=== PATIENT | male | born 1935 | race Caucasian/White ===

== ENCOUNTER 2017-04-23 08:27 | Observation (INO) | payer OTHER ==
[~2017-04-23] VITALS: Ht 182.9 cm; Wt 101.6 kg
[~2017-04-23 08:27] MED LIST: ACET-2247 PO; ALBU8.5H8 IH; ASPI-1197 PO; DOCU100C33 PO; LOSA25TA21 PO; MULT-1258 PO; OMEP40CA37 PO; PRAV20TA4 PO; SOLI10TA PO; SPIR50TA PO; TAMS0.4C32 PO; URIN1STR90 MC
[2017-04-23 08:45] LABS: BASOPHILS % (AUTO) 0.7 % (0.0-5.0); EOSINOPHILS % (AUTO) 1.8 % (0.0-8.0); HEMATOCRIT 36.9 % (42-54); LYMPHOCYTES % (AUTO) 22.7 % (21.0-51.0); MEAN CORPUSCULAR HEMOGLOBIN 29.8 pg (27.0-33.0); MEAN CORPUSCULAR HGB CONC 34.3 g/dL (32.0-36.0); MEAN CORPUSCULAR VOLUME 86.9 fL (79-99); MONOCYTES % (AUTO) 10.2 % (3.0-13.0); NEUTROPHILS % (AUTO) 64.6 % (40.0-77.0); PLATELET COUNT (AUTO) 135 K/uL (130-400); RED BLOOD CELL COUNT(AUTO) 4.25 MIL/uL (4.50-6.20); RED CELL DISTRIBUTION WIDTH 14.6 % (11.0-15.5); WHITE BLOOD COUNT (AUTO) 7.2 K/uL (4.8-10.8)
[2017-04-23 08:55] LABS: POTASSIUM 5.3 mmol/L (3.5-5.1)
[2017-04-23 08:56] LABS: INR 0.99 (0.85-1.15); PARTIAL THROMBOPLASTIN TIME 25.6 SEC (26.3-35.5); PROTHROMBIN TIME 10.4 SEC (9.6-11.6)
[2017-04-23 08:59] LABS: ALBUMIN 3.7 g/dL (3.5-5.0); BILIRUBIN,TOTAL 0.7 mg/dL (0.2-1.0); TOTAL PROTEIN, SERUM 7.3 g/dL (6.0-8.3)
[2017-04-23 09:55] LABS: APPEARANCE,URINE Clear (CLEAR); BILIRUBIN,URINE Negative (NEGATIVE); COLOR,URINE Dark Yellow (YELLOW); GLUCOSE, URINE (UA) Negative (NEGATIVE); KETONES,URINE Negative (NEGATIVE); LEUKOCYTE ESTERASE ,URINE Small (NEGATIVE); NITRATE,URINE Positive (NEGATIVE); OCCULT BLOOD,URINE Negative (NEGATIVE); PH,URINE 8.5 (5.0-8.0); PROTEIN,URINE Negative (NEGATIVE)
[2017-04-23 10:48] LABS: BACTERIA,URINE Rare /HPF (None Seen); RBC,URINE 0-1 /HPF (0-1); SQUAMOUS EPITHELIAL CELL,UR None Seen /LPF (0-2); WBC,URINE 0-1 /HPF (0-1)
[2017-04-23] MEDS ORDERED: GUAIFENESIN-DM 200/20 MG 10 ML PO PRN (15:00)
[2017-04-23] MEDS ORDERED: MAG HYDROX/AL HYDROX/SIMETH ES 30 ML SUSP UDCUP PO PRN (15:00)
[2017-04-23] MEDS ORDERED: ACETAMINOPHEN 325 MG TAB PO PRN ×2 (15:00)
[2017-04-23] MEDS ORDERED: ONDANSETRON HCL 4 MG/2 ML VIAL IV PRN (15:00)
[2017-04-23] MEDS ORDERED: LACTULOSE 20 GM/30 ML UDCUP PO PRN (15:00)
[2017-04-23 16:16] VITALS: BP 127/57
[2017-04-23] MEDS ORDERED: CLOP75TA32 PO (17:23)
[2017-04-23 19:04] VITALS: BP 112/58
[2017-04-23] MEDS ORDERED: FAMOTIDINE/PF 20 MG/2 ML VIAL IV SCH (21:00)
[2017-04-23 23:09] VITALS: BP 114/49
[2017-04-24] VITALS (7 sets, daily range): BP systolic 122–144; BP diastolic 60–70
[2017-04-24] MEDS ORDERED: SODIUM CHLORIDE 0.9% 1000ML 1,000 ML IV ONE (03:35)
[2017-04-24 03:42] LABS: HEMATOCRIT 35.1 % (42-54); MEAN CORPUSCULAR HEMOGLOBIN 29.6 pg (27.0-33.0); MEAN CORPUSCULAR VOLUME 87.1 fL (79-99); PLATELET COUNT (AUTO) 119 K/uL (130-400); RED BLOOD CELL COUNT(AUTO) 4.03 MIL/uL (4.50-6.20); RED CELL DISTRIBUTION WIDTH 14.1 % (11.0-15.5); WHITE BLOOD COUNT (AUTO) 6.7 K/uL (4.8-10.8)
[2017-04-24] MEDS ORDERED: SODIUM CHLORIDE 0.9% 1000ML 1,000 ML IV SCH (04:00)
[2017-04-24 04:20] LABS: CARBON DIOXIDE 30 mmol/L (21-32); CHLORIDE 106 mmol/L (101-111); CREATINE KINASE MB < 0.5 ng/mL (0.5-3.6); CREATINE KINASE, TOTAL 29 U/L (21-232); GLOMERULAR FILTR. RATE CALC 76 mL/min (>60); GLUCOSE,RANDOM 111 mg/dL (70-105); MYOGLOBIN 50 ng/mL (10-92); POTASSIUM 4.3 mmol/L (3.5-5.1); SODIUM SERUM 140 mmol/L (136-145); TROPONIN I < 0.04 ng/mL (0.00-0.06); UREA NITROGEN, BLOOD 19 mg/dL (7-18)
[2017-04-24] MEDS: ASPIRIN 81MG TAB.CHEW PO SCH (08:34)
[2017-04-24] MEDS: PANTOPRAZOLE SODIUM 40 MG TABLET.DR PO SCH (08:34)
[2017-04-24] MEDS ORDERED: ACETAMINOPHEN 325 MG TAB PO PRN (09:15)
[2017-04-24] MEDS ORDERED: LOSARTAN 50 MG TABLET PO SCH (16:00)
[2017-04-24] MEDS ORDERED: ATORVASTATIN CALCIUM 10 MG TABLET PO SCH ×2 (21:00)
[2017-04-25 03:28] VITALS: BP 128/63
[2017-04-25 03:29] VITALS: BP 131/66
[2017-04-25 03:30] VITALS: BP 130/70
[2017-04-25 03:31] LABS: CREATININE 1.1 mg/dL (0.5-1.5); POTASSIUM 4.5 mmol/L (3.5-5.1)
[2017-04-25 07:12] VITALS: BP 145/70
[2017-04-25 07:14] VITALS: BP 136/77
[2017-04-25 07:16] VITALS: BP 128/68
[2017-04-25] MEDS: ASPIRIN 81MG TAB.CHEW PO SCH (08:48)
[2017-04-25] MEDS: PANTOPRAZOLE SODIUM 40 MG TABLET.DR PO SCH (08:48)
[2017-04-25] MEDS ORDERED: OXYBUTYNIN 5 MG TAB.SR.24H PO SCH (09:00)
[2017-04-25] MEDS ORDERED: SPIRONOLACTONE 25 MG TAB PO SCH (09:00)
[2017-04-25] MEDS ORDERED: CLOPIDOGREL BISULFATE 75 MG TAB PO SCH (09:00)
[2017-07-20] MEDS ORDERED: ALBUTEROL SULFATE IH (13:39)
[2017-07-20] MEDS ORDERED: ACET-2900 PO (13:39)
[2017-07-20] MEDS ORDERED: METHYLCOBALAMIN PO (13:39)
[2017-07-20] MEDS ORDERED: LUBI8CAP PO (13:39)
[2017-07-20] MEDS ORDERED: MECL-111 PO (13:39)
== END 2017-04-25 12:56 | disposition home or self-care (01) ==
LOC: EDH 08:27 → EDHIP 14:54 → 2AH 16:07
PROVIDERS: ADMIT Family Medicine; ATTEND Family Medicine
DX: R55 Syncope and collapse (principal); R29.6 Repeated falls; I10 Essential (primary) hypertension; K21.9 Gastro-esophageal reflux disease without esophagitis; E78.5 Hyperlipidemia, unspecified; N40.0 Benign prostatic hyperplasia without lower urinary tract symptoms; I25.10 Atherosclerotic heart disease of native coronary artery without angina pectoris; N31.9 Neuromuscular dysfunction of bladder, unspecified; J44.9 Chronic obstructive pulmonary disease, unspecified; I42.0 Dilated cardiomyopathy; I25.2 Old myocardial infarction; W18.30XA Fall on same level, unspecified, initial encounter; Y93.89 Activity, other specified; Y92.009 Unspecified place in unspecified non-institutional (private) residence as the place of occurrence of the external cause; Y99.8 Other external cause status; Z85.46 Personal history of malignant neoplasm of prostate; Z91.81 History of falling; Z95.810 Presence of automatic (implantable) cardiac defibrillator; Z95.5 Presence of coronary angioplasty implant and graft; Z79.82 Long term (current) use of aspirin; Z79.899 Other long term (current) drug therapy
CPT/HCPCS: 36415 ×3; 70450; 71045; 72125; 80048 ×2; 80053; 81001; 82533; 82550; 82553; 83874; 84484; 85025; 85027; 85610; 85730; 87040 ×2; 87088; 87186; 93005 ×2; 93306; 93880; 96374; 97039; 97116; 97161; 99285; A4510; G0378 ×46; G8978; G8979; G8980; G8981; G8982; G8983; J3490; J7030

== ENCOUNTER 2017-07-22 06:03 | Observation (INO) | payer OTHER ==
[2017-07-20 11:55] LABS: POTASSIUM 4.2 mmol/L (3.5-5.1)
[2017-07-20 12:03] LABS: BASOPHILS % (AUTO) 0.6 % (0.0-5.0); EOSINOPHILS % (AUTO) 1.9 % (0.0-8.0); HEMATOCRIT 37.7 % (42-54); LYMPHOCYTES % (AUTO) 12.6 % (21.0-51.0); MEAN CORPUSCULAR HEMOGLOBIN 28.9 pg (27.0-33.0); MEAN CORPUSCULAR HGB CONC 33.1 g/dL (32.0-36.0); MEAN CORPUSCULAR VOLUME 87.3 fL (79-99); NEUTROPHILS % (AUTO) 76.9 % (40.0-77.0); PLATELET COUNT (AUTO) 145 K/uL (130-400); RED BLOOD CELL COUNT(AUTO) 4.32 MIL/uL (4.50-6.20); WHITE BLOOD COUNT (AUTO) 8.3 K/uL (4.8-10.8)
[2017-07-20 12:42] LABS: INR 0.97 (0.85-1.15); PARTIAL THROMBOPLASTIN TIME 26.1 SEC (26.3-35.5); PROTHROMBIN TIME 10.2 SEC (9.6-11.6)
[2017-07-20 12:46] VITALS: BP 132/62
[~2017-07-22] VITALS: Ht 182.9 cm; Wt 101.2 kg
[2017-07-22] VITALS (9 sets, daily range): BP systolic 116–141; BP diastolic 57–92
[~2017-07-22 06:03] MED LIST changes: -ACET-2247 PO; +ACET-2900 PO; -ALBU8.5H8 IH; +ALBUTEROL SULFATE IH; +CEFAZOLIN SODIUM 1 GM VIAL IVP SCH; -DOCU100C33 PO; -LOSA25TA21 PO; +LUBI8CAP PO; +MECL-111 PO; +METHYLCOBALAMIN PO; -PRAV20TA4 PO; +SODIUM CHLORIDE 0.9% 500ML 500 ML IV SCH; -SOLI10TA PO; -SPIR50TA PO; -URIN1STR90 MC
[2017-07-22] MEDS ORDERED: SODIUM CHLORIDE 0.9% 1000ML 1,000 ML IV ONE (06:35)
[2017-07-22] MEDS ORDERED: CEFAZOLIN SODIUM 1 GM VIAL ONE (07:18)
[2017-07-22] MEDS ORDERED: BUPIVACAINE/PF 0.25% 30ML VIAL IJ ONE (07:18)
[2017-07-22] MEDS ORDERED: ISOVUE-300 100 ML VIAL IV ONE (07:18)
[2017-07-22] MEDS ORDERED: MEPERIDINE-PF 25 MG/ML SYG ONE ×2 (07:19→08:08)
[2017-07-22] MEDS ORDERED: MIDAZOLAM HCL 1 MG/ML 2ML VIAL ONE ×2 (07:19→08:08)
[2017-07-22] MEDS ORDERED: LIDOCAINE HCL 1% MDV 50ML VIAL ONE (07:19)
[2017-07-22] MEDS ORDERED: ACETAMINOPHEN-CODEINE 300/30MG TAB PO PRN ×2 (09:30)
[2017-07-22] MEDS ORDERED: ACETAMINOPHEN 325 MG TAB PO PRN (09:30)
[2017-07-22] MEDS ORDERED: METHYLCOBALAMIN 1000 MCG PO SCH (11:00)
[2017-07-22] MEDS ORDERED: ACETAMINOPHEN EXTENDED RELEASE 650 MG TABLET PO PRN (11:00)
[2017-07-22] MEDS ORDERED: MECLIZINE HCL 25 MG TABLET PO PRN (11:00)
[2017-07-22] MEDS ORDERED: ALBUTEROL SULFATE 0.083% 2.5 MG/3 ML INH IH PRN (11:30)
[2017-07-22] MEDS ORDERED: TAMSULOSIN HCL 0.4 MG CAP.ER.24H PO SCH (13:00)
[2017-07-22] MEDS: LUBIPROSTONE 8 MG PO SCH (21:29)
[2017-07-23 04:23] VITALS: BP 128/68
[2017-07-23 07:30] VITALS: BP 129/66
[2017-07-23] MEDS ORDERED: ASPIRIN 81MG TAB.CHEW PO SCH (09:00)
[2017-07-23] MEDS ORDERED: PANTOPRAZOLE SODIUM 40 MG TABLET.DR PO SCH (09:00)
[2017-07-23] MEDS: LUBIPROSTONE 8 MG PO SCH (09:03)
[2017-07-23] MEDS ORDERED: MULTIVITAMIN WITH MINERALS TABLET PO SCH (21:00)
== END 2017-07-23 12:19 | disposition home or self-care (01) ==
LOC: DAH 06:03 → DAHIP 06:04 → 4CH 09:45
PROVIDERS: ADMIT Internal Medicine; ATTEND Internal Medicine
DX: I42.0 Dilated cardiomyopathy (principal); I11.0 Hypertensive heart disease with heart failure; I50.22 Chronic systolic (congestive) heart failure; I95.1 Orthostatic hypotension; I25.10 Atherosclerotic heart disease of native coronary artery without angina pectoris; N40.1 Benign prostatic hyperplasia with lower urinary tract symptoms; R33.8 Other retention of urine; Z95.810 Presence of automatic (implantable) cardiac defibrillator; E78.5 Hyperlipidemia, unspecified; Z79.82 Long term (current) use of aspirin; Z79.899 Other long term (current) drug therapy
CPT/HCPCS: 33249; 36415; 71045; 80048; 85025; 85610; 85730; 93005; 94640; 94664; A4606; C1721; C1769; C1895; G0378 ×30; J0690; J2175; J2250; J3490 ×2; J7030; Q9967; 99156; 99157

== ENCOUNTER 2017-08-04 06:16 | Day surgery (SDC) | payer OTHER ==
[~2017-08-04] VITALS: Ht 177.8 cm; Wt 101.1 kg
[~2017-08-04 06:16] MED LIST changes: -CEFAZOLIN SODIUM 1 GM VIAL IVP SCH; +SODIUM CHLORIDE 0.9% 1000ML 1,000 ML IV ONE; -SODIUM CHLORIDE 0.9% 500ML 500 ML IV SCH
[2017-08-04 06:50] VITALS: BP 117/63
[2017-08-04] MEDS ORDERED: PROPOFOL 10 MG/ML 20ML VIAL IV ONE ×2 (08:50)
[2017-08-04 09:02] VITALS: BP 93/50
== END 2017-08-04 09:35 | disposition home or self-care (01) ==
LOC: ENDO 06:16 → DAH 06:16 → ENDO 09:35
PROVIDERS: ATTEND Internal Medicine Gastroenterology
DX: K29.50 Unspecified chronic gastritis without bleeding (principal); K31.9 Disease of stomach and duodenum, unspecified; K44.9 Diaphragmatic hernia without obstruction or gangrene; E11.9 Type 2 diabetes mellitus without complications; I25.10 Atherosclerotic heart disease of native coronary artery without angina pectoris; Z95.810 Presence of automatic (implantable) cardiac defibrillator; Z98.890 Other specified postprocedural states; Z79.899 Other long term (current) drug therapy
CPT/HCPCS: 43239; 88305; 88312; 93005; A4606; J2704 ×2; J7030

== ENCOUNTER → 2017-08-25 | Outpatient (CLI) | payer OTHER ==
[~2017-08-25] MED LIST changes: -ASPI-1197 PO; -SODIUM CHLORIDE 0.9% 1000ML 1,000 ML IV ONE
== END | disposition home or self-care (01) ==
LOC: RAH 09:36
PROVIDERS: ATTEND Internal Medicine Gastroenterology
DX: R13.10 Dysphagia, unspecified (principal); R63.3 Feeding difficulties
CPT/HCPCS: G8996; G8997; G8998; 74230; 92611

== ENCOUNTER → 2017-08-27 | Outpatient (CLI) | payer OTHER | END | disposition home or self-care (01) | LOC: RAH 09:33 | PROVIDERS: ATTEND Internal Medicine | DX: K44.9 Diaphragmatic hernia without obstruction or gangrene (principal); K21.9 Gastro-esophageal reflux disease without esophagitis | CPT/HCPCS: 74240 ==

== ENCOUNTER → 2018-01-10 | Outpatient (CLI) | payer OTHER ==
[~2018-01-10] MED LIST changes: +ALBU8TAB PO; -ALBUTEROL SULFATE IH; +CEPH500C2 PO; +FURO20TA4 PO; -MECL-111 PO; +NYST15CR TP; +TOLT4CAP13 PO
== END | disposition home or self-care (01) ==
LOC: SHCH 09:30
PROVIDERS: ATTEND Internal Medicine Cardiovascular Disease
DX: Z09 Encounter for follow-up examination after completed treatment for conditions other than malignant neoplasm (principal)
CPT/HCPCS: 93971